=== PATIENT | female | born 1950 | race Hispanic/Latino ===

== ENCOUNTER 2022-04-25 14:22 | Emergency (ER) | payer OTHER ==
[~2022-04-25] VITALS: Ht 144.8 cm; Wt 56.7 kg
[2022-04-25] MEDS ORDERED: GABAPENTIN300 MG PO (14:45)
== END 2022-04-25 14:55 | disposition home or self-care (01) ==
LOC: ER 14:26
DX: M54.12 Radiculopathy, cervical region (principal); E03.9 Hypothyroidism, unspecified
CPT/HCPCS: 99283